=== PATIENT | female | born 1950 | race Caucasian/White ===

== ENCOUNTER 2017-07-13 08:54 | Emergency (ER) | payer MEDICARE, BC ==
--- NOTE | ~2017-07-13 | CT4 ---
[facility] A Service of [facility] RADIOLOGY TEXT RESULTS PATIENT: GAEL OLIVEIRA LOCATION: SED : 50 UNIT #: [id number] AGE: [address]: Nimco Manuel MD SEX: F ORDER DR: [id number] [place] [id number] E MR#: [id number] Acc #: [id number] NAME: GAEL OLIVEIRA : 1950 SEX: F STUDY DATE/TIME: 07/13/2017 11:42 UNIT: SED ROOM: STUDY DESCRIPTION: CT Abd and Pelv Wo Cont Attending Physician: Nimco Manuel M.D. Ordering Physician: Nimco Manuel M.D. Primary Care Physician: Jennifer Francois M.D. MEDICAL IMAGING REPORT This report is preliminary unless electronic signature is present. EXAM CT abdomen and pelvis without contrast 07/13/2017 1142 hours HISTORY 67-year-old woman with complaint of right-sided abdominal pain with diarrhea since last night. COMPARISON None. TECHNIQUE Helical noncontrasted images were obtained from the lung bases through the pubic symphysis. No oral or intravenous contrast was administered. Total exam DLP 1040 mGy-cm. This CT exam was performed with one or more of the following radiation dose reduction techniques: Automatic exposure control, adjustment of mA and/or kV according to patient size, and iterative reconstruction. FINDINGS Images through the lung bases are clear. There are no effusions. The distal esophagus is normal. Noncontrasted images through the abdomen demonstrate a normal appearance to the liver, spleen, pancreas and bile ducts. The gallbladder is absent. The adrenal glands are normal. The kidneys demonstrate no mass, stone or obstruction. There is no ureterectasis or ureteral calculus. The bladder appears normal. There are lower pelvic phleboliths bilaterally. The stomach is contracted and unopacified but appears normal. There is no small bowel distension or small bowel wall thickening. The appendix is surgically absent. The terminal ileum and cecum are normal. Ascending colon, transverse colon, descending colon and rectosigmoid colon are STS. [facility] A Service of [facility] RADIOLOGY TEXT RESULTS PATIENT: GAEL OLIVEIRA LOCATION: SED : 50 UNIT #: [id number] AGE: [address]: Nimco Manuel MD SEX: F ORDER DR: decompressed and normal in appearance. CT pelvis demonstrates surgical absence of the uterus. There is no adnexal mass or free fluid. There is degenerative disc disease most prominent at L4-5 with disc height loss and endplate spurring. There is multilevel spurring in the lower thoracic spine. No fracture seen. IMPRESSION 1. Negative noncontrasted CT of the abdomen and pelvis. The gallbladder, appendix and uterus are surgically absent. 2. There is no distension of the stomach, small bowel or colon. 3. No renal or ureteral calculi. Dictated by... Marion Quiles M.D. THIS IS AN ELECTRONICALLY VERIFIED REPORT Marion Quiles M.D. at 07/13/2017 5:27 PM YUNIEL/sharmin TD: 07/13/2017 15:38 JOB #: [id number] MEDICAL IMAGING REPORT Page 1 of 1
--- NOTE | ~2017-07-13 | EKG ---
PATIENT: GAEL OLIVEIRA UNIT #: [id number] Ventricular Rate: 57 BPM Atrial Rate: 57 BPM P-R Interval: 150 ms QRS Duration: 84 ms Q-T Interval: 440 ms QTC Calculation(Bezet): 428 ms P [place]: 43 degrees Calculated R [place]: 17 degrees Calculated T [place]: 23 degrees Diagnosis Line: Sinus bradycardia Diagnosis Line: Otherwise normal ECG Diagnosis Line: No previous ECGs available Diagnosis Line: Confirmed by BOLA CALVILLO MD ([id number]) on 07/15/2017 Diagnosis Line: 7:01:56 PM INTERPRETING MD: RAJINDER PICHARDO
[~2017-07-13 08:54] MED LIST: NO MEDICATIONS
[2017-07-13 10:06] LABS: BASOPHIL# 0.1 X10e3 (0-0.3); EOSINOPHIL# 0.1 X10e3 (0-0.7); EOSINOPHIL% 1.1 % (0.0-7.0); HEMATOCRIT 39.9 % (35.0-45.0); HEMOGLOBIN 13.7 gm/dL (12.0-16.0); LYMPHOCYTE# 1.6 X10e3 (1.0-3.5); LYMPHOCYTE% 23.3 % (17.0-45.0); MEAN CORPUSCULAR HEMOGLOBIN 30.9 PG (28-34); MEAN CORPUSCULAR HGB CONC 34.3 g/dL (30-36); MEAN PLATELET VOLUME 8.3 FL (6.5-11.5); MONOCYTE# 0.4 X10e3 (0-1.0); MONOCYTE% 6.4 % (3.0-12.0); NEUTROPHIL# 4.8 X10e3 (1.5-7.1); NEUTROPHIL% 68.2 % (40-75); PLATELET COUNT 258 X10e3 (140-420); RED BLOOD COUNT 4.44 X10e (3.90-5.30); RED CELL DISTRIBUTION WIDTH 13.1 % (11.0-15.5)
[2017-07-13 10:07] LABS: URINE SOURCE CLEAN CATCH
[2017-07-13 10:10] LABS: URINE APPEARANCE CLEAR; URINE BILIRUBIN NEG (NEG); URINE BLOOD TRACE-INTACT (NEG); URINE COLOR YELLOW; URINE GLUCOSE NEG (NORM); URINE KETONE NEG (NEG); URINE LEUKOCYTE ESTERASE 1+ (NEG); URINE NITRATE NEG (NEG); URINE PROTEIN NEG (NEG); URINE SPECIFIC GRAVITY 1.015 (1.003-1.035); URINE UROBILINOGEN 0.2 MG/DL (NORM)
[2017-07-13 10:16] LABS: MICRO INDICATED? YES
[2017-07-13 10:17] LABS: POC - CKMB <1.0 ng/mL (0.0-7.9); POC - MYOGLOBIN 95.3 ng/mL (0.0-169.0)
[2017-07-13 10:18] LABS: POC - TROPONIN <0.05 ng/mL (<=0.05)
[2017-07-13 10:32] LABS: CULTURE INDICATED? NO; URINE BACTERIA NEG (NEG); URINE RBC 0-2 /[HPF] (0-2); URINE WBC 0-2 /[HPF] (0-5)
[2017-07-13 10:36] LABS: DIFF IND NO
[2017-07-13 10:39] LABS: BILIRUBIN, DIRECT 0.1 mg/dL (0.0-0.2); BILIRUBIN,INDIRECT 0.5 mg/dL (0.0-0.9); BILIRUBIN,TOTAL 0.6 mg/dL (0.2-2.0); BUN/CREATININE RATIO 14.44; CALCIUM SERUM 8.4 mg/dL (8.4-10.2); CREATININE SERUM 0.9 mg/dL (0.6-1.4); GLOM FILT RATE Estimated 66.2 mL/min (>60); POTASSIUM 3.9 mmol/L (3.5-5.1); PROTEIN TOTAL SERUM 6.9 g/dL (6.0-8.3)
== END 2017-07-13 12:45 | disposition home or self-care (01) ==
LOC: SED 08:54
PROVIDERS: Emergency Medicine
DX: N39.0 Urinary tract infection, site not specified (principal); Z90.49 Acquired absence of other specified parts of digestive tract; Z90.710 Acquired absence of both cervix and uterus; Z88.1 Allergy status to other antibiotic agents; Z88.8 Allergy status to other drugs, medicaments and biological substances
CPT/HCPCS: 36415; 74176; 80048; 80076; 81003; 82150; 82553; 83690; 83874; 84484; 85025; 93005; 96374; 99284; J1885